=== PATIENT | female | born 1940 | race Caucasian/White ===

== ENCOUNTER 2019-12-28 18:18 | Emergency (ER) | payer MEDICARE, BC ==
[2019-12-28 18:34] VITALS: BP 170/60; PULSE 75
[2019-12-28 19:16] LABS: ANION GAP 6.9 mmol/L (10-20)
--- NOTE | 2019-12-28 22:36 | EDM.PDOC ---
ED HPI GENERAL MEDICAL PROBLEM - General Chief Complaint: General Time Seen by Provider: 12/28/19 18:20 Source of Information: Reports: Patient History Limitations: Reports: No Limitations - History of Present Illness INITIAL COMMENTS - FREE TEXT/NARRATIVE: Pt. presents to ER with complaints of intermittent jerking of her muscles. Pt. states that she has had problems like this in the past when her electrolytes are depleted. Pt. states that she is undergoing chemotherapy in [place] for pancreatic CA. She states that she is due for chemo on Saturday. She is not sure what chemotheraputic agent she is on. She states that she recently increased her lyrica dose from 150mg every AM to 300mg every AM and 150mg every PM. Pt. denies any other complaints. Denies any chest pain or shortness of breath. No lightheadedness. No nausea, vomiting, or diarrhea. Denies any palpitations or lightheadedness. Pt. states that the muscle jerking has been intermittent in nature. She states that it mainly involves her upper extremities. Onset: Today Onset Date: 12/26/19 Location: Reports: Upper Extremity, Left, Upper Extremity, Right, Generalized - Related Data Allergies Allergy/AdvReac Type Severity Reaction Status Date / Time amoxicillin [Amoxicillin] Allergy Anaphylactic Verified 12/28/19 18:24 Shock azithromycin [From Zithromax] Allergy Itching Verified 12/28/19 18:24 cephalexin monohydrate Allergy Cannot Verified 12/28/19 18:24 [From Keflex] Remember duloxetine HCl Allergy Nausea and Verified 12/28/19 18:24 [From Cymbalta] Vomiting morphine Allergy Cannot Verified 12/28/19 18:24 Remember Penicillins Allergy Cannot Verified 12/28/19 18:24 Remember Sulfa (Sulfonamide Allergy Nausea and Verified 12/28/19 18:24 Antibiotics) Vomiting Home Meds: Home Meds Albuterol [Ventolin HFA] 1 - 2 puff INH Q4H PRN 06/29/15 [History] Aspirin [Ecotrin] 81 mg PO DAILY 06/29/15 [History] Beta-Glucan, (1-3) (1-4) [Beta Glucan] 1 applic PO DAILY 06/29/15 [History] Budesonide/Formoterol [Symbicort 160-4.5 Mcg Inhaler] 2 puff IH BID 06/29/15 [History] Calcium Carbonate/Vitamin D3 [Calcium 1,000 + D3 Caplet] 1 each PO DAILY 06/29/15 [History] Cranberry Fruit Concentrate [Cranberry] 450 mg PO DAILY 06/29/15 [History] Fern Root 550 mg PO DAILY 06/29/15 [History] Levothyroxine [Synthroid] 50 mcg PO ACBREAKFAST 06/29/15 [History] Lisinopril 2 tab PO DAILY 06/29/15 [History] Pantoprazole Sodium 1 tab PO BID 06/29/15 [History] Pregabalin [Lyrica] 1 tab PO DAILY 06/29/15 [History] metFORMIN [Glucophage] 1 tab PO BID 06/29/15 [History] Albuterol [Proventil Neb Soln] 1 dose INH TID 12/06/15 [History] Apixaban [Eliquis] 5 mg PO 12/28/19 [History] Diclofenac Sodium [Voltaren 1% Gel] 1 applic TOP BID PRN 12/28/19 [History] fentaNYL [Duragesic] 1 patch TD Q72H 12/28/19 [History] traMADol HCl [Tramadol HCl] 50 mg PO 12/28/19 [History] Past Medical History Oncologic (Cancer) History: Reports: Liver, Pancreatic Social & Family History - Tobacco Use Smoking Status *Q: Former Smoker Used Tobacco, but Quit: Yes Month/Year Tobacco Last Used: 2014 - Recreational Drug Use Recreational Drug Use: No ED ROS GENERAL - Review of Systems Review Of Systems: See Below Constitutional: Reports: No Symptoms. Denies: Fever, Chills, Malaise, Weakness, Fatigue HEENT: Reports: No Symptoms Respiratory: Reports: No Symptoms Cardiovascular: Reports: No Symptoms Endocrine: Reports: No Symptoms GI/Abdominal: Reports: No Symptoms : Reports: No Symptoms Musculoskeletal: Reports: No Symptoms Skin: Reports: No Symptoms Neurological: Reports: Other (please see HPI). Denies: Confusion, Dizziness, Headache, Numbness, Paresthesia, Seizure, Syncope, Tingling, Difficulty Walking, Weakness, Gait Disturbance Psychiatric: Reports: No Symptoms Hematologic/Lymphatic: Reports: No Symptoms Immunologic: Reports: No Symptoms ED EXAM, GENERAL - Physical Exam Exam: See Below Exam Limited By: No Limitations General Appearance: Alert, WD/WN, No Apparent Distress Eye Exam: Bilateral Eye: EOMI, Normal Fundi, Normal Inspection, PERRL Throat/Mouth: Normal Inspection, Normal Lips, Normal Teeth, Normal Gums, Normal Oropharynx, Normal Voice, No Airway Compromise Head: Atraumatic, Normocephalic Neck: Normal Inspection, Supple, Non-Tender, Full Range of Motion Respiratory/Chest: No Respiratory Distress, Lungs Clear, Normal Breath Sounds, No Accessory Muscle Use, Chest Non-Tender Cardiovascular: Normal Peripheral Pulses, Regular Rate, Rhythm, No Edema, No JVD, No Murmur, No Rub GI/Abdominal: Soft, Non-Tender, No Distention, No Mass, Pelvis Stable (Female) Exam: Deferred Rectal (Female) Exam: Deferred Back Exam: Normal Inspection, Full Range of Motion Extremities: Normal Range of Motion, Non-Tender, No Pedal Edema, Normal Capillary Refill Neurological: Alert, Oriented, CN II-XII Intact, Normal Cognition, Normal Gait, Normal Reflexes (+3), No Motor/Sensory Deficits Psychiatric: Normal Affect, Normal Mood Skin Exam: Warm, Dry, Intact, Normal Color, No Rash Course - Vital Signs Last Recorded V/S: Last Vital Signs Temp 36.8 C 12/28/19 18:20 Pulse 75 12/28/19 18:20 Resp 16 12/28/19 18:20 BP 170/60 H 12/28/19 18:20 Pulse Ox 97 12/28/19 18:20 - Orders/Labs/Meds Labs: Laboratory Tests 12/28/19 Range/Units 18:48 Sodium 139 (136-145) mmol/L Potassium 4.9 (3.5-5.1) mmol/L Chloride 105 (98-107) mmol/L Carbon Dioxide 32 (21-32) mmol/L Anion Gap 6.9 L (10-20) mmol/L BUN 13 (7-18) mg/dL Creatinine 1.3 H (0.55-1.02) mg/dL Est Cr Clr Drug Dosing 27.30 mL/min Estimated GFR (MDRD) 39 Glucose 77 (74-106) mg/dL Calcium 8.5 (8.5-10.1) mg/dL Corrected Calcium 9.14 (8.5-10.1) mg/dL Phosphorus 2.4 L (2.6-4.7) mg/dL Magnesium 2.0 (1.8-2.4) mg/dL Total Bilirubin 0.3 (0.2-1.0) mg/dL AST 20 (15-37) U/L ALT 18 (14-59) U/L Alkaline Phosphatase 100 (46-116) U/L Total Protein 6.4 (6.4-8.2) g/dL Albumin 3.2 L (3.4-5.0) g/dL Globulin 3.2 Albumin/Globulin Ratio 1.00 Departure - Departure Time of Disposition: 10:39 Disposition: Home, Self-Care 01 Clinical Impression: Dyskinesia, drug-induced - Discharge Information Referrals: Nguyễn Bingham MD [Primary Care Provider] - Forms: ED Department Discharge Additional Instructions: The most likely cause of your involuntary movement is due to one of your medications, either the Lyrica or possibly the chemotherapy you are taking. Decrease your Lyrica to once at night to see if this helps. All of your electrolytes were within normal limits. Follow-up with PCP or oncologist in 7-10 days. Sepsis Event Note (ED) - Evaluation Sepsis Screening Result: No Definite Risk - Focused Exam Vital Signs: Vital Signs Temp Pulse Resp BP Pulse Ox 12/28/19 18:20 36.8 C 75 16 170/60 H 97 - Problem List Review Problem List Initiated/Reviewed/Updated: Yes - Assessment/Plan Plan: The most likely cause of your involuntary movement is due to one of your medications, either the Lyrica or possibly the chemotherapy you are taking. Decrease your Lyrica to once at night to see if this helps. All of your electrolytes were within normal limits. Follow-up with PCP or oncologist in 7-10 days.
== END 2019-12-28 20:02 | disposition home or self-care (01) ==
LOC: VM.ED 18:18
DX: G24.01 Drug induced subacute dyskinesia (principal); Z88.1 Allergy status to other antibiotic agents; Z88.0 Allergy status to penicillin; Z88.5 Allergy status to narcotic agent; Z88.2 Allergy status to sulfonamides; Z88.8 Allergy status to other drugs, medicaments and biological substances; Z79.82 Long term (current) use of aspirin; Z79.899 Other long term (current) drug therapy; Z87.891 Personal history of nicotine dependence
CPT/HCPCS: 36415; 80053; 83735; 84100; 99283; 99284